=== PATIENT | female | born 1995 | race Caucasian/White ===

== ENCOUNTER 2018-09-10 17:20 | Emergency (ER) | payer OTHER ==
[2018-09-10] MEDS ORDERED: NORCO 5/325 PO ONE (17:50)
[2018-09-10] MEDS ORDERED: NACL 0.9% 1000 ML 1,000 ML IV ONE (17:50)
--- NOTE | 2018-09-10 18:06 | Emergency Department Report ---
HPI - General Chief Complaint: Chest Pain Time Seen by Provider: 09/10/18 17:44 - HPI HPI: 22-year-old [place] female presents to the emergency department from home with a few different complaints. First, the patient is complaining of some intermittent generalized headaches that she calls migraines but she has never actually been diagnosed with migraine headaches. However she does have intermittent and chronic headaches and says that this feels similar. She has some nonspecific dizziness, but denies any vision change, slurred speech or any neurological deficits. Secondly, the patient complains of some midsternal intermittent chest pain that has been going on since yesterday. She describes it as a grabbing sensation. It worsens when she is laying flat and is associated with some shortness of breath. She denies any past medical history. No recent travel or sick contacts at home. She does not have a primary care physician. She denies any tobacco or illicit drug use or abuse. She has not taken anything for her symptoms prior to arrival. ED Past Medical Hx - Past Medical History Hx Asthma: Yes - Surgical History Past Surgical History?: No - Social History Smoking Status: Never Smoker Substance Use Type: None ED Review of Systems ROS: Stated complaint: CHEST PAIN Other details as noted in HPI Comment: All other systems reviewed and negative Constitutional: denies: chills, fever Eyes: denies: eye pain, vision change ENT: denies: ear pain, throat pain Respiratory: orthopnea, shortness of breath. denies: cough Cardiovascular: chest pain. denies: edema Gastrointestinal: denies: abdominal pain, vomiting Genitourinary: denies: dysuria, discharge Musculoskeletal: denies: back pain, arthralgia Skin: denies: rash, lesions Neurological: headache, other (dizziness) Physical Exam - Physical Exam Physical Exam: GENERAL: The patient is well-developed well-nourished. HEENT: Normocephalic. Atraumatic. Patient has moist mucous membranes. EYES: Extraocular motions are intact. Pupils are equal and reactive to light bilaterally. No nystagmus. NECK: Supple. Trachea is midline. CHEST/LUNGS: Clear to auscultation. There is no respiratory distress noted. HEART/CARDIOVASCULAR: Regular. There is no tachycardia. There is no obvious murmur. ABDOMEN: Abdomen is soft, nontender. Patient has normal bowel sounds. There is no abdominal distention. SKIN: Skin is warm and dry. NEURO: The patient is awake, alert, and oriented. The patient is cooperative. The patient has no focal neurologic deficits. The patient has normal speech. Cranial nerves II through XII grossly intact. MUSCULOSKELETAL: There is no tenderness or deformity. There is no limitation range of motion. There is no evidence of acute injury. ED Medical Decision Making - Lab Data Result diagrams: 09/10/18 17:59 09/10/18 17:59 - EKG Data -: EKG Interpreted by Me EKG shows normal: sinus rhythm, axis, intervals, QRS complexes, ST-T waves Rate: normal - EKG Data When compared to previous EKG there are: previous EKG unavailable Interpretation: normal EKG - Radiology Data Radiology results: image reviewed interpreted by me: Chest x-ray does not show any pneumothorax, pleural effusion, pneumonia or obvious focal consolidation. - Medical Decision Making This patient presents to the emergency Department with a 24-hour history of some midsternal nonradiating chest pain, as well as the complaint of episodic and/or acute on chronic headaches. On examination she has no focal, motor or sensory deficits in her cranial nerves are intact. Heart and lungs are normal to auscultation. EKG did not show any signs of ST elevation ME, ischemia or dysrhythmia. Labs have been unremarkable including a CBC, metabolic panel, nega tive troponin and negative d-dimer. She was given some IV fluid and a single Rico for her discomfort. Upon reevaluation of her symptoms have resolved and she is currently asymptomatic. She is low on the Heart score criteria. Despite her complaint of a headache, she does not have any deficits or confusion. We decided to cancel the CT imaging of the head at this time. She will follow up with primary care and neurology. She will return to the ER with any worsening of her symptoms or any acute distress. - Differential Diagnosis tension headache, migraines, ME, PE, costochondritis Critical Care Time: No Critical care attestation.: If time is entered above; I have spent that time in minutes in the direct care of this critically ill patient, excluding procedure time. ED Disposition Clinical Impression: Intermittent chest pain Headache Qualifiers: Headache type: unspecified Headache chronicity pattern: episodic headache Intractability: not intractable Qualified Code(s): R51 - Headache Disposition: DC-01 TO HOME OR SELFCARE Is pt being admited?: No Condition: Stable Instructions: Chest Pain (ED), Migraine Headache (ED), Acute Headache (ED) Additional Instructions: Please follow up with a primary care physician. I am giving you a referral for a few different local primary care physicians. I am also giving you a referral for a local neurologist, Dr Kohler, to follow up with regarding your headaches. Return to the emergency department with any return or worsening of your symptoms or any acute distress. Referrals: ROVERTO KOHLER MD [Referring] - 2-3 Days ABDIAZIZ ARGUELLO MD [Staff Physician] - 2-3 Days BETTE HAILE MD [Staff Physician] - 2-3 Days Time of Disposition: 19:21 Heart Score - HEART Score History: Slightly suspicious EKG: Normal Age: < 45 Risk factors: No known risk factors Troponin: < normal limit HEART Score: 0 - Critical Actions Critical Actions: 0-3 pts:0.9-1.7%risk of adverse cardiac event.Candidate for discharge
[2018-09-10 18:18] LABS: Basophils # (Auto) 0.3 K/mm3 (0.0-0.1); Basophils % (Auto) 2.4 % (0.0-1.8); Eosinophils # (Auto) 0.4 K/mm3 (0.0-0.4); Eosinophils % (Auto) 3.2 % (0.0-4.3); Hematocrit 31.9 % (30.3-42.9); Hemoglobin 10.5 gm/dl (10.1-14.3); Lymphocytes # (Auto) 2.8 K/mm3 (1.2-5.4); Lymphocytes % (Auto) 25.7 % (13.4-35.0); Mean Corpuscular HGB Conc 33 % (30-34); Mean Corpuscular Volume 72 fl (79-97); Monocytes # (Auto) 0.6 K/mm3 (0.0-0.8); Monocytes % (Auto) 5.1 % (0.0-7.3); Platelet Count 299 K/mm3 (140-440); Red Cell Distribution Width 16.6 % (13.2-15.2)
[2018-09-10 18:27] LABS: BUN/Creatinine Ratio 17; Blood Urea Nitrogen 10 mg/dL (7-17); Calcium 8.6 mg/dL (8.4-10.2); Hemolysis Index 6
[2018-09-10 19:59] VITALS: BP 108/69
--- NOTE | 2018-09-10 20:25 | XRay Report ---
PROCEDURE: XR CHEST 1V AP HISTORY: Chest Pain FINDINGS: Single frontal view of the chest was acquired. The heart is normal in size. The lungs are m ildly hyperinflated. No consolidative infiltrate is seen. The pulmonary vasculature is within normal limits. IMPRESSION: Mild hyperinflation This document is electronically signed by Duane Desai MD., September 10 2018 08:24:00 PM ET
== END 2018-09-10 19:59 | disposition home or self-care (01) ==
LOC: ED 17:20
DX: R07.9 Chest pain, unspecified (principal); R51 Headache; J45.909 Unspecified asthma, uncomplicated
CPT/HCPCS: 36415; 71045; 80048; 84484; 84703; 85025; 85379; 93005; 93010; 96360; 96361; 99284; J7030